=== PATIENT | female | born 1985 ===

== ENCOUNTER 2017-12-29 16:15 | Emergency (ER) | payer OTHER ==
[2017-12-29 16:24] VITALS: BP 110/68; PULSE 91; RESP 18; TEMP 98.4; O2SAT 100
[2017-12-29] MEDS ORDERED: Lidocaine/Epi 1% 1:100000 20 ML IJ ONE (16:42)
[2017-12-29] MEDS ORDERED: Lidocaine 1% w Epi 1:100,000 Inj ONE (16:45)
--- NOTE | 2017-12-29 16:46 | ED PDOC ---
HPI: Skin/Bite Injury Time Seen by Provider: 12/29/17 16:26 Chief Complaint (Nursing): Abnormal Skin Integrity History Per: Patient Additional Complaint(s): Pt. states since Tuesday she's had a progressively worsening painful erythematous mass in the lower back. States that initially mass was just a "small ball." Denies fever, trauma. Past Medical History Reviewed: Historical Data, Nursing Documentation, Vital Signs Vital Signs: Last Vital Signs Temp 98.4 F 12/29/17 16:19 Pulse 91 H 12/29/17 16:19 Resp 18 12/29/17 16:19 BP 110/68 12/29/17 16:19 Pulse Ox 100 12/29/17 17:43 - Medical History PMH: Denies: Diabetes - Surgical History Surgical History: No Surg Hx - Family History Family History: States: No Known Family Hx - Home Medications Home Medications: Ambulatory Orders Medication Instructions Recorded Cephalexin [cephalexin] 500 mg PO Q6 #28 cap 12/29/17 Sulfamethoxazole/Trimethoprim 2 tab PO BID #28 tab 12/29/17 [Bactrim DS 800 mg-160 mg] oxyCODONE/Acetaminophen [Percocet 1 ea PO Q8 PRN #8 tab 12/29/17 5/325 mg Tab] - Allergies Allergies/Adverse Reactions: Allergies Allergy/AdvReac Type Severity Reaction Status Date / Time No Known Allergies Allergy Verified 12/29/17 16:19 Review of Systems ROS Statement: Except As Marked, All Systems Reviewed And Found Negative Musculoskeletal: Positive for: Back Pain Skin: Positive for: Rash Physical Exam - Physical Exam Appears: Positive for: Well, Non-toxic, Uncomfortable Skin: Positive for: Normal Color, Warm, DRY Eye Exam: Positive for: Normal appearance Back: Negative for: Normal Inspection (lower back area superior to pilonidal area with 4cm x 4cm erythematous mass which has central fluctuance with surrounding induration and erythema without break in skin integrity) - ECG O2 Sat by Pulse Oximetry: 100 Disposition - Clinical Impression Clinical Impression: Abscess - Patient ED Disposition Is Patient to be Admitted: No - Disposition Referrals: [facility] [employer] [facility] [Outside] Disposition: Routine/Home Disposition Time: 17:41 Condition: IMPROVED Additional Instructions: RETURN TO ED IN 48 HOURS FOR WOUND CHECK/PACKING REMOVAL RETURN TO ED IMMEDIATELY IF PAIN WORSENS OR FEVER DEVELOPS START TAKING YOUR ANTIBIOTICS TODAY PILY LE, thank you for letting us take care of you today. Your provider was Nikhil Mar MD and you were treated for BACK PAIN. The emergency medical care you received today was directed at your acute symptoms. If you were prescribed any medication, please fill it and take as directed. It may take several days for your symptoms to resolve. Return to the Emergency Department if your symptoms worsen, do not improve, or if you have any other problems. Please contact your doctor or call one of the physicians/clinics you have been referred to that are listed on the Patient Visit Information form that is included in your discharge packet. Bring any paperwork you were given at discharge with you along with any medications you are taking to your follow up visit. Our treatment cannot replace ongoing medical care by a primary care provider outside of the emergency department. Thank you for allowing the [facility] team to be part of your care today. If you had an X-Ray or CT scan: A Radiologist will review the ED reading if any change in treatment is needed we will contact you. If you had a blood, urine, or wound culture: It will take several days for the results, if any change in treatment is needed we will contact you. If you had an STI test: It will take 48 hours for the results. Please call after 1 week if you have not heard back. Prescriptions: Cephalexin [cephalexin] 500 mg PO Q6 #28 cap oxyCODONE/Acetaminophen [Percocet 5/325 mg Tab] 1 ea PO Q8 PRN #8 tab PRN Reason: PAIN Sulfamethoxazole/Trimethoprim [Bactrim DS 800 mg-160 mg] 2 tab PO BID #28 tab Instructions: Abscess Incision and Drainage (DC) Forms: [employer] (Tajik), [facility] ED School/Work Excuse Procedures - Time-Out Type of Procedure: I&D Site of Procedure: lower back Correct Patient (with visual ID + MR# on ID Band): Yes Correct Procedure: Yes Correct Site Marked: Yes PA/Tech: Wendy - Incision and Drainage Blade Size: 11 I & D Procedure: betadine prep, sterile drapes applied, sterile dressing applied , gauze wick placed Progress: Mild amount of pus expressed out of mass. Wound culture obtained. DSD applied. Pt. advised to return to ED in 48 hours for wound check/packing removal but is to return to ED immediately if temperature of 100.4 or above develops.
== END 2017-12-29 17:55 | disposition home or self-care (01) ==
LOC: H.ER 16:15
DX: L02.212 Cutaneous abscess of back [any part, except buttock and flank] (principal)

== ENCOUNTER 2017-12-31 16:59 | Emergency (ER) | payer OTHER ==
[2017-12-31 17:50] VITALS: BP 98/67; PULSE 88; RESP 16; TEMP 98.4; O2SAT 98
--- NOTE | 2017-12-31 18:10 | ED PDOC ---
HPI: Wound Care - HPI Time Seen by Provider: 12/31/17 17:55 Chief Complaint (Nursing): Wound Check Chief Complaint (Provider): Wound check History Per: Patient History Of Present Illness: Janice Pinto is a 32 year old female, with no significant past medical history, who presents to the emergency department for wound check and packing removal. Patient had an abscess drained x2 days ago in her lower back and was prescribed antibiotics and pain medications. She denies any fever and states pain to affected area is better. PMD: Papo Sanchez Exam Limitations: no limitations Onset/Duration Of Symptoms: Days (x2) Past Medical History Reviewed: Historical Data, Nursing Documentation, Vital Signs Vital Signs: Last Vital Signs Temp 98.4 F 12/31/17 17:47 Pulse 88 12/31/17 17:47 Resp 16 12/31/17 17:47 BP 98/67 L 12/31/17 17:47 Pulse Ox 98 12/31/17 17:47 - Medical History PMH: No Chronic Diseases - Surgical History Surgical History: No Surg Hx - Family History Family History: States: No Known Family Hx - Living Arrangements Living Arrangements: With Family - Social History Current smoker - smoking cessation education provided: No Alcohol: None Drugs: Denies - Home Medications Home Medications: Ambulatory Orders Medication Instructions Recorded Cephalexin [cephalexin] 500 mg PO Q6 #28 cap 12/29/17 Sulfamethoxazole/Trimethoprim 2 tab PO BID #28 tab 12/29/17 [Bactrim DS 800 mg-160 mg] oxyCODONE/Acetaminophen [Percocet 1 ea PO Q8 PRN #8 tab 12/29/17 5/325 mg Tab] - Allergies Allergies/Adverse Reactions: Allergies Allergy/AdvReac Type Severity Reaction Status Date / Time No Known Allergies Allergy Verified 12/29/17 16:19 Review of Systems ROS Statement: Except As Marked, All Systems Reviewed And Found Negative Constitutional: Negative for: Fever Skin: Positive for: Other (lower back abscess, here for wound check) Physical Exam - Reviewed Nursing Documentation Reviewed: Yes Vital Signs Reviewed: Yes - Physical Exam Appears: Positive for: Well, Non-toxic, No Acute Distress Skin: Positive for: Normal Color. Negative for: Rash Eye Exam: Positive for: Normal appearance Back: Positive for: Other (healing abscess to lower back with no active drainage , packing in place, minimal tenderness to palpation) Extremity: Positive for: Normal ROM (upper and lower extremities). Negative for : Deformity Neurologic/Psych: Positive for: Alert, Oriented - ECG O2 Sat by Pulse Oximetry: 98 (RA) Pulse Ox Interpretation: Normal Medical Decision Making Medical Decision Making: Time: 17:55 Initial Impression: Abscess Initial Plan: -Packing removed without difficulty. Instructed patient to apply warm compresses and continue antibiotics as directed to completion. Scribe Attestation: Documented by Dale Avery, acting as a scribe for Coral Valiente PA-C Provider Scribe Attestation: All medical record entries made by the Scribe were at my direction and personally dictated by me. I have reviewed the chart and agree that the record accurately reflects my personal performance of the history, physical exam, medical decision making, and the department course for this patient. I have also personally directed, reviewed, and agree with the discharge instructions and disposition. Disposition - Clinical Impression Clinical Impression: Abscess packing removal - Patient ED Disposition Is Patient to be Admitted: No Counseled Patient/Family Regarding: Need For Followup - Disposition Referrals: Mariano Saleh [Medical Doctor] - Disposition: Routine/Home Disposition Time: 18:45 Condition: STABLE Additional Instructions: Continue applying warm compresses to affected area as often as possible with Epsom salts. Continue with both antibiotics as directed to completion. Follow- up next week with primary doctor. Instructions: Skin Abscess Forms: [employer] (Kinyarwanda)
== END 2017-12-31 18:50 | disposition home or self-care (01) ==
LOC: H.ER 16:59
DX: Z48.01 Encounter for change or removal of surgical wound dressing (principal)